=== PATIENT | female | born 1965 | race Caucasian/White ===

== ENCOUNTER 2018-05-30 16:17 | Inpatient (IN) | payer OTHER ==
[~2018-05-30] VITALS: Ht 177.8 cm; Wt 138.2 kg
[2018-05-30] MEDS ORDERED: ASPIRIN 81 MG TABLET CHEW PO ONE (17:30)
[2018-05-30 17:32] LABS: BASOPHILS # (AUTO) 0.06 x10^3/uL (0-0.1); BASOPHILS % (AUTO) 1 % (0-1); EOSINOPHILS # (AUTO) 0.04 x10^3/uL (0-0.4); EOSINOPHILS % (AUTO) 1 % (1-7); LYMPHOCYTES # (AUTO) 2.01 x10^3/uL (1-3.4); LYMPHOCYTES % (AUTO) 40 % (22-44); MD NO; MEAN CORPUSCULAR HEMOGLOBIN 34.8 pg (27.0-34.8); MEAN CORPUSCULAR HGB CONC 34.2 g/dL (32.4-35.8); MEAN CORPUSCULAR VOLUME 101.6 fL (80-100); MONOCYTES # (AUTO) 0.49 x10^3/uL (0.2-0.8); MONOCYTES % (AUTO) 10 % (2-9); NEUTROPHILS # (AUTO) 2.46 x10^3/uL (1.8-6.8); NEUTROPHILS % (AUTO) 49 % (42-75); PLATELET COUNT 169 x10^3/uL (130-400); RED BLOOD COUNT 4.77 x10^6/uL (3.82-5.3); RED CELL DISTRIBUTION WIDTH 13.5 % (9.6-15.2)
[2018-05-30 17:44] LABS: ALBUMIN 3.5 g/dL (3.4-5.0); ANION GAP 8 mmol/L (5-15); CALCIUM 8.9 mg/dL (8.5-10.1); CHLORIDE 111 mmol/L (98-107)
[2018-05-30 17:49] LABS: CREATININE 1.07 mg/dL (0.55-1.02); TROPONIN I < 0.015 ng/mL (0.000-0.045)
--- NOTE | 2018-05-30 18:05 | NUR ---
Pt to 18 from lobby
[2018-05-30] MEDS ORDERED: ASPIRIN 81 MG TABLET CHEW ONE (18:12)
[2018-05-30] MEDS ORDERED: RIVA20TA PO (18:20)
[2018-05-30] MEDS ORDERED: ONDANSETRON ODT 4 MG PO ONE (18:30)
[2018-05-30] MEDS ORDERED: CEFTRIAXONE 1,000 MG IM ONE (18:30)
[2018-05-30] MEDS ORDERED: ALBUTEROL/IPRATROPIUM 2.5MG/0.5MG, 3 ML NPPB SCH (18:30)
[2018-05-30] MEDS ORDERED: ALBUTEROL/IPRATROPIUM 2.5MG/0.5MG, 3 ML ONE (18:40)
--- NOTE | 2018-05-30 19:06 | NUR ---
Provided bedside report to JEANNETTE Burt. All questions answered. Carmel assuming care of pt at this time.
--- NOTE | 2018-05-30 19:19 | NUR ---
RECEIVED REPORT FROM LEE MACHADO. CARE ASSUMED. PT RESTING IN POSITION OF COMFORT. BREATHING TREATMENT COMPLETED BY RESPIRATORY, "FEELING A LITTLE BETTER BUT ABOUT THE SAME." ERP AT BEDSIDE DISCUSSING POC, PT TO BE ADMITTED TO HOSPITAL AGREES TO POC, VERBALIZED UNDERSTANDING. SR ON MONITOR. VSS. CALL LIGHT IN REACH. FALL PRECAUTIONS IN PLACE. DENIES NEED TO USE RESTROOM. FAMILY AT BEDSIDE.
--- NOTE | 2018-05-30 19:20 | NUR ---
ISOLATION PRECAUTIONS IN PLACE FOR PT REPORTS OF DI[facility]HEA PER POLICY
[2018-05-30] MEDS ORDERED: AZITHROMYCIN 500 MG in SODIUM CHLORIDE 0.9% 250 ML IV ONE (19:30)
[2018-05-30] MEDS ORDERED: SODIUM CHLORIDE FLUSH 10ML SYR IVF ONE (19:30)
[2018-05-30] MEDS ORDERED: ONDANSETRON ODT 4 MG ONE (19:47)
[2018-05-30] MEDS ORDERED: CEFTRIAXONE 1,000 MG ONE (19:48)
[2018-05-30] MEDS ORDERED: CEFTRIAXONE PMX 1GM/50ML 50 ML IV SCH (20:00)
[2018-05-30] MEDS ORDERED: POLYETHYLENE GLYCOL 17 GM PACKET PO PRN (20:00)
[2018-05-30] MEDS ORDERED: ACETAMINOPHEN 325 MG TABLET PO PRN (20:00)
[2018-05-30] MEDS ORDERED: BISACODYL 10 MG SUPP PR PRN (20:00)
[2018-05-30] MEDS: AZITHROMYCIN 500 MG in SODIUM CHLORIDE 0.9% 250 ML IV SCH (20:01)
--- NOTE | 2018-05-30 20:07 | NUR ---
PT MEDICATED NOTED PER BHASKAR MATOS ORDER. IM ROCEPHIN HELD PER BHASKAR MATOS, TO ADMIN IV ROCEPHIN. WILL START AZITHROMYCIN IV ANTIBIOTIC AFTER ROCEPHIN. NO BLOOD CULTURES PER BHASKAR MATOS PRIOR TO ANTIBIOTIC ADMIN. PT REPORTS -12/29 AVILES. FIORICET REQUESTED FROM PHARMACY PER ABUNDIO AGUERO ADMITTING MD FOR AVILES PAIN. CALL LIGHT IN REACH. VSS.
[2018-05-30] MEDS: SODIUM CHLORIDE 0.9% 1,000 ML IV SCH (20:10)
[2018-05-30] MEDS ORDERED: CEFTRIAXONE PMX 1GM/50ML 50 ML ONE (20:17)
[2018-05-30] MEDS ORDERED: ALBUTEROL SULFATE 2.5 MG/3 ML NPPB PRN (20:30)
[2018-05-30 20:45] LABS: FOLATE LEVEL 14.8 ng/mL (3.1-17.5)
[2018-05-30] MEDS: BUTALB/APAP/CAFFEINE 50MG/325MG/40MG PO PRN (21:00)
--- NOTE | 2018-05-30 21:04 | NUR ---
PT MEDICATED NOTED PER ORDER FOR 10/10 AVILES PAIN. VSS. CALL LIGHT IN REACH. DENIES NEED TO USE RESTROOM. PT REQUESTING FOOD, REGULAR DIET TRAY REQUESTED FOR MD ORDER. CALL LIGHT IN REACH. FALL PRECAUTIONS IN PLACE. CONTINUE AWAITING ROOM ON FLOOR.
--- NOTE | 2018-05-30 21:38 | NUR ---
VERBAL/PHONE REPORT AND CARE TO FLOOR RN MEREDITH AT THIS TIME, ADMIT ROOM 02 RECEIVED.
[2018-05-30 23:05] VITALS: BP 112/78
[2018-05-31] MEDS: BUTALB/APAP/CAFFEINE 50MG/325MG/40MG PO PRN ×4 (02:45→22:47)
[2018-05-31 03:09] VITALS: BP 126/80
[2018-05-31] MEDS: SODIUM CHLORIDE 0.9% 1,000 ML IV SCH ×2 (04:30→14:23)
[2018-05-31 04:41] LABS: MEAN CORPUSCULAR HEMOGLOBIN 34.5 pg (27.0-34.8); MEAN CORPUSCULAR HGB CONC 34.4 g/dL (32.4-35.8); MEAN CORPUSCULAR VOLUME 100.2 fL (80-100); MEAN PLATELET VOLUME 10.2 fL (7.4-10.4); PLATELET COUNT 149 x10^3/uL (130-400); RED CELL DISTRIBUTION WIDTH 13.7 % (9.6-15.2)
[2018-05-31 04:54] LABS: CHLORIDE 114 mmol/L (98-107)
[2018-05-31 05:03] LABS: ALANINE AMINOTRANSFERASE 51 U/L (12-78); ALBUMIN 2.9 g/dL (3.4-5.0); ALKALINE PHOSPHATASE 101 U/L (45-117); ANION GAP 6 mmol/L (5-15); BILIRUBIN,TOTAL 0.3 mg/dL (0.2-1.0); CREATININE 0.77 mg/dL (0.55-1.02); TOTAL PROTEIN 6.8 g/dL (6.4-8.2)
[2018-05-31 05:57] LABS: BASOPHILS # (AUTO) 0.01 x10^3/uL (0-0.1); BASOPHILS % (AUTO) 0 % (0-1); EOSINOPHILS % (AUTO) 0 % (1-7); LYMPHOCYTES # (AUTO) 0.77 x10^3/uL (1-3.4); LYMPHOCYTES % (AUTO) 33 % (22-44); MD SCAN; MONOCYTES # (AUTO) 0.09 x10^3/uL (0.2-0.8); MONOCYTES % (AUTO) 4 % (2-9); NEUTROPHILS # (AUTO) 1.45 x10^3/uL (1.8-6.8); NEUTROPHILS % (AUTO) 63 % (42-75)
[2018-05-31 08:00] VITALS: BP 124/79
[2018-05-31] MEDS: RIVAROXABAN 20 MG TABLET PO SCH (10:38)
[2018-05-31] MEDS: SENNA/DOCUSATE TABLET PO SCH (10:40)
[2018-05-31 10:50] VITALS: BP 79/80
[2018-05-31 14:30] VITALS: BP 106/72
[2018-05-31] MEDS: CEFTRIAXONE PMX 2GM/50ML 50 ML IV SCH (14:31)
[2018-05-31] MEDS: AZITHROMYCIN 500 MG in SODIUM CHLORIDE 0.9% 250 ML IV SCH (19:59)
[2018-05-31 20:03] VITALS: BP 96/66
[2018-06-01] MEDS: SODIUM CHLORIDE 0.9% 1,000 ML IV SCH ×2 (01:57→11:54)
[2018-06-01 02:16] VITALS: BP 106/72
[2018-06-01] MEDS: SENNA/DOCUSATE TABLET PO SCH (09:00)
[2018-06-01 09:46] VITALS: BP 115/78
[2018-06-01] MEDS: RIVAROXABAN 20 MG TABLET PO SCH (09:57)
[2018-06-01] MEDS: CEFTRIAXONE PMX 2GM/50ML 50 ML IV SCH (13:53)
[2018-06-01 15:23] VITALS: BP 117/83
[2018-06-01] MEDS: BUTALB/APAP/CAFFEINE 50MG/325MG/40MG PO PRN ×2 (16:28→21:37)
[2018-06-01 17:41] VITALS: BP 112/76
[2018-06-01] MEDS: ONDANSETRON ODT 4 MG PO PRN (19:31)
[2018-06-01] MEDS: GUAIFENESIN/DM 200-20MG, 10ML UDC PO PRN (19:55)
[2018-06-01] MEDS: AZITHROMYCIN 500 MG in SODIUM CHLORIDE 0.9% 250 ML IV SCH (19:55)
[2018-06-01 20:16] VITALS: BP 116/79
[2018-06-01] MEDS ORDERED: DIPHENHYDRAMINE 25 MG CAPSULE PO PRN (23:00)
[2018-06-02] MEDS: ONDANSETRON ODT 4 MG PO PRN ×2 (03:19→15:16)
[2018-06-02] MEDS: GUAIFENESIN/DM 200-20MG, 10ML UDC PO PRN ×2 (03:19→11:11)
[2018-06-02 03:26] VITALS: BP 120/86
[2018-06-02 08:00] VITALS: BP 110/75
[2018-06-02 08:45] LABS: ANION GAP 4 mmol/L (5-15); CALCIUM 8.3 mg/dL (8.5-10.1); CHLORIDE 115 mmol/L (98-107)
[2018-06-02 08:46] LABS: CREATININE 0.82 mg/dL (0.55-1.02)
[2018-06-02 08:48] LABS: BASOPHILS # (AUTO) 0.02 x10^3/uL (0-0.1); BASOPHILS % (AUTO) 1 % (0-1); EOSINOPHILS # (AUTO) 0.07 x10^3/uL (0-0.4); EOSINOPHILS % (AUTO) 2 % (1-7); LYMPHOCYTES % (AUTO) 43 % (22-44); MD NO; MEAN CORPUSCULAR HEMOGLOBIN 33.7 pg (27.0-34.8); MEAN CORPUSCULAR HGB CONC 33.4 g/dL (32.4-35.8); MEAN PLATELET VOLUME 10.4 fL (7.4-10.4); MONOCYTES # (AUTO) 0.35 x10^3/uL (0.2-0.8); MONOCYTES % (AUTO) 8 % (2-9); NEUTROPHILS # (AUTO) 2.09 x10^3/uL (1.8-6.8); NEUTROPHILS % (AUTO) 47 % (42-75); PLATELET COUNT 197 x10^3/uL (130-400); RED BLOOD COUNT 4.18 x10^6/uL (3.82-5.3); RED CELL DISTRIBUTION WIDTH 13.6 % (9.6-15.2)
[2018-06-02] MEDS ORDERED: CEFUROXIME 500 MG TABLET PO SCH (09:00)
[2018-06-02] MEDS: SENNA/DOCUSATE TABLET PO SCH (09:00)
[2018-06-02] MEDS ORDERED: AZITHROMYCIN 500 MG TABLET PO SCH (09:00)
[2018-06-02] MEDS: RIVAROXABAN 20 MG TABLET PO SCH (10:18)
[2018-06-02 12:31] VITALS: BP 122/86
[2018-06-02] MEDS: BUTALB/APAP/CAFFEINE 50MG/325MG/40MG PO PRN (15:15)
[2018-06-02] MEDS ORDERED: ALBU18HF INH (15:54)
[2018-06-02] MEDS ORDERED: AZIT500T5 PO (15:54)
[2018-06-02] MEDS ORDERED: GUAI5SYR PO (15:54)
[2018-06-02] MEDS ORDERED: CEFU500T50 PO (15:54)
== END 2018-06-02 17:41 | disposition home or self-care (01) | DRG 208 ==
LOC: ED 19:10 → EDIP 19:15 → ED 19:24 → ICU 22:05 → 3NW 06-01 16:59
PROVIDERS: ADMIT Family Medicine; ATTEND Family Medicine
PROC: 5A1935Z Respiratory Ventilation, Less than 24 Consecutive Hours (ICD-10-PCS; principal; 2018-05-31)
DX: J15.9 Unspecified bacterial pneumonia (principal); J96.01 Acute respiratory failure with hypoxia; Z68.41 Body mass index [BMI] 40.0-44.9, adult; Z79.01 Long term (current) use of anticoagulants; E66.01 Morbid (severe) obesity due to excess calories; D75.1 Secondary polycythemia; J98.01 Acute bronchospasm; D75.89 Other specified diseases of blood and blood-forming organs; Z87.01 Personal history of pneumonia (recurrent); Z86.718 Personal history of other venous thrombosis and embolism; Z90.710 Acquired absence of both cervix and uterus; Z88.2 Allergy status to sulfonamides; Z91.040 Latex allergy status
CPT/HCPCS: 36415; 99285; J7620; 71046; 80048; 80053; 80069; 82040; 82607; 82746; 83880; 84484; 85025; 87070; 87081; 87205; 93005; 94640; 96365; 96367; G0378; J0456; J0696; Q0162; J7030; J7050; J7512